=== PATIENT | male | born 1990 | race Caucasian/White ===

== ENCOUNTER 2020-03-24 17:24 | Emergency (ER) | payer MEDICAID, SELFPAY ==
[2020-03-24 17:30] VITALS: BP 145/86; PULSE 71; RESP 16; TEMP 36.8; O2SAT 97
--- NOTE | 2020-03-24 17:45 | DI.CT_ITS ---
EXAM: CT ABDOMEN PELVIS W CLINICAL HISTORY: lower abdominal pain 2-3 mo, assoc bloody stool. TECHNIQUE: Imaging Protocol: Axial computed tomography images with coronal and sagittal reformatted images were created and reviewed CONTRAST MATERIAL: Intravenous: Omnipaque 350 Contrast volume:100 ml Oral: no COMPARISON: No exams were available for comparison FINDINGS: ABDOMEN: Lung Bases: Normal where visualized. Liver: Normal density. No measurable mass. Gallbladder and biliary tract: No radiodense calculus or dilation. Pancreas: Normal density, no abnormal calcifications or inflammatory process. Spleen: Normal. Kidneys: Normal size, contour and axis. No radiodense stones or obstructive uropathy. No masses seen. Adrenal glands: No masses seen. Abdominal Aorta: Abdominal portion non-dilated. PELVIS: Bladder: Symmetric distention, no gross wall thickening. Bowel: No obstruction or bowel wall thickening. Increased stool particularly distally. Peritoneal cavity: No ascites, collection or mesenteric inflammatory response. Bones: Within normal limits. Reproductive organs: Within normal limits. Lymph nodes: Unremarkable. Impression: Increased quantity of stool, otherwise negative. RADIATION DOSE DELIVERED: Total DLP DATA REPOSITORY: All CT scans at this facility are submitted to the National Radiology Data Registry (NRDR) Dose Index Registry (DIR) with the [employer] (A[employer]). RADIATION OPTIMIZATION: All CT scans at this facility use at least one of these dose optimization te chniques: automated exposure control; mA and/or kV adjustment per patient size (includes targeted exa ms where dose is matched to clinical indication); or iterative reconstruction.
--- NOTE | 2020-03-24 17:47 | ED.GENADUL_ITS ---
Discharge Plan Disposition Patient Disposition: HOME Condition: Stable Discharge Details Chief Complaint: Abd Prob Clinical Impression: Abdominal pain, Constipation, Bloody stools Primary Care Provider: Debbie,Local ED Provider: Jassi Roberts Home Meds and New Rx's Prescriptions: New docusate sodium [Dulcolax Stool Softener (dss)] 100 mg capsule 100 mg PO BID Qty: 60 RF: 0 mineral oil [Fleet Mineral Oil] Enema 118 ml MI DAILY 2 Days Qty: 270 RF: 0 Continued buprenorphine-naloxone [Suboxone] 8-2 mg Film 2 film SUBLINGUAL DAILY RF: 0 Discharge Instructions Instructions: Constipation (ED), Abdominal Pain (ED) Additional Instructions: Please use stool softener as prescribed. Please use mineral oil enema as prescribed. Drink plenty of clear electrolyte balanced fluid (ie. Gatorade) to stay hydrated. You magnesium was slightly low today. Be sure to discuss this with your doctor. Maintain a balanced diet. Please follow-up with general surgery. Call on Wednesday to schedule follow-up appointment for colonoscopy. Please contact your primary care physician to arrange follow-up. Return to the ER for any worsening or new concerning symptoms. If you have persistent heavy bleeding from your rectum, return to the emerge department immediately. Referrals: Geetha Jara MD [ [facility] STAFF PHYSICIAN] - Medical Decision Making 30-year-old male here with 3 to 4 months of intermittent lower abdominal pain, constipation, and occasional bright red blood mixed in the stool. Hemoccult positive with no gross blood. CT the abdomen and pelvis to assess for acute surgical pathology or mass was reviewed and interpreted by radiology: IMPRESSION: Significant amount of retained fecal material throughout the colon. No bowel obstruction. Labs reviewed and nondiagnostic other than mild hypomagnesemia. Magnesium 400 mg p.o. given. Suspect constipation. Patient given IV fluid bolus. Will prescribe fleets enema and stool softener. Patient was encouraged to follow-up with general surgery for further diagnostic testing including colonoscopy. Usual and customary discharge instructions were reviewed with the patient. Patient was encouraged to increase fluid intake. All results were discussed with the patient. Patient understands importance of timely outpatient follow- up. HPI General Mode of arrival: ambulatory . Date/Time Provider Initiated Documentation: 03/24/20 17:27 . Limitations to Documentation: no limitations . Information obtained by: patient . HPI Narrative: 30-year-old male presents with chief complaint of abdominal pain. Patient notes chronic intermittent abdominal pain over the past 3 months. Pain is described as a fullness. Moderate intensity. He notes associated constipation and also having to strain to have bowel movements. Sometimes bowel movements are bloody. He seen his primary care physician for this and was encouraged to go to the ER for further work-up a few months ago. This is his first time coming to the ER for this issue. He notes main concern of potential colon cancer as he has a family history of colon cancer. He is never had a colonoscopy. Patient is on Suboxone and does note that he is had decreased p.o. water intake recently. Last bowel movement was earlier today, small and it did have trace blood in it. Pain is currently mild. Related Data Home Medications Medication Instructions Recorded Confirmed buprenorphine-naloxone [Suboxone] 2 film SUBLINGUAL DAILY 03/24/20 03/24/20 docusate sodium [Dulcolax Stool 100 mg PO BID #60 cap 03/24/20 Softener (dss)] mineral oil [Fleet Mineral Oil] 118 ml MI DAILY 2 Days #270 ml 03/24/20 Previous Rx's Medication Instructions Recorded docusate sodium [Dulcolax Stool 100 mg PO BID #60 cap 03/24/20 Softener (dss)] mineral oil [Fleet Mineral Oil] 118 ml MI DAILY 2 Days #270 ml 03/24/20 Allergies Allergy/AdvReac Type Severity Reaction Status Date / Time a spray for sinus AdvReac Uncoded 03/24/20 17:34 infection General Stated Complaint: Abd Prob LEODAN: 3 Review of Systems All systems reviewed & are unremarkable except as noted in HPI and below Constitutional Constitutional: Denies fatigue, Denies fever(s) and Reports poor appetite Gastrointestinal Gastrointestinal: Reports as per HPI Genitourinary Genitourinary: Denies dysuria, Denies penile discharge, Denies scrotal swelling and Denies testicular pain Endocrine Endocrine: Denies fatigue Exam Const General: cooperative and no acute distress HENMT Mouth: moist mucous membranes Eyes Conjunctivae: normal conjunctivae Sclera: normal sclerae Neck Neck: trachea midline and supple Resp Auscultation: clear to auscultation bilaterally, no rales, no rhonchi and no wheezes Cardio Jugular venous pressure: no JVD Rate: regular rate and not tachycardic Rhythm: regular rhythm GI Palpation: soft, not firm, no guarding, no masses, not rigid and tender (Lower abdomen bilaterally) with no rebound tenderness Rectal Exam: visual inspection normal, normal sphincter tone, heme positive stool, No hemorrhoids, No mass, No tenderness and other (No gross blood) Skin General skin exam: no rashes or lesions noted Neuro General: patient alert, patient awake, patient oriented x3 and tone normal Extrem General: no edema Psych Appearance: grossly normal Mental Status: mental status grossly normal Speech and Movement: speech and movement normal Course Vital Signs Vital signs: Vital Signs Temperature 36.8 C 03/24/20 17:30 Pulse 71 03/24/20 17:30 Respiratory Rate 16 03/24/20 17:30 Blood Pressure 145/86 H 03/24/20 17:30 Pulse Oximetry 97 03/24/20 17:30 Temperature 36.8 C 03/24/20 17:30 Temperature Source Skin 03/24/20 17:30 Pulse 71 03/24/20 17:30 Respiratory Rate 16 03/24/20 17:30 Respiratory Effort Non-Labored 03/24/20 17:35 Blood Pressure 145/86 H 03/24/20 17:30 Blood Pressure Position Sitting 03/24/20 17:30 Pulse Oximetry 97 03/24/20 17:30 Oxygen Delivery Method Room Air 03/24/20 17:30 Oxygen Flow Rate 0 03/24/20 17:30 Pain Level 4 03/24/20 17:30
[2020-03-24] MEDS: Lactated Ringers 1,000 ML 1000 ML IV (17:57)
[2020-03-24 17:59] LABS: Abs Immature Grans 0.02 k/cumm (0.0-0.09); Absolute Basophil Count 0.03 k/cumm (0.0-0.2); Absolute Eosinophil Count 0.22 k/cumm (0.0-0.7); Absolute Lymphocyte Count 2.71 k/cumm (1.2-3.4); Absolute Monocyte Count 0.66 k/cumm (0.11-0.7); Absolute Neutrophil Count 6.13 k/cumm (1.2-6.7); Basophils % 0.3; Eosinophils % 2.3; HCT 41.6 % (40.0-50.0); HGB 14.5 g/dL (13.5-17.5); Immature Grans % 0.2 %; Lymphocytes % 27.7; Mean Corp. HGB Concentration 34.9 g/dL (32.0-36.0); Mean Corpuscular Hemoglobin 30.4 pg (27.0-33.0); Mean Corpuscular Volume 87.2 fL (80-95); Monocytes % 6.8; Neutrophils % 62.7; Platelet Count 326 x1000/uL (130-400); RBC 4.77 m/cumm (4.50-6.00); RBC Distribution Width 12.7 % (11.8-14.1); White Blood Cell Count 9.77 k/cumm (4.4-10.8)
[2020-03-24 18:19] LABS: ALT 32 U/L (16-63); AST 30 U/L (15-37); Albumin 4.2 g/dL (3.4-5.0); Alkaline Phosphatase 85 U/L (46-116); Anion Gap 9.4 mmol/L (3-11); BUN 18 mg/dL (7-18); Bilirubin, Total 0.5 mg/dL (0.2-1.0); CO2 28.6 mmol/L (21.0-32.0); CREATININE 1.03 mg/dL (0.70-1.30); Calcium 8.9 mg/dL (8.5-10.1); Chloride 101 mmol/L (98-107); Glucose 96 mg/dL (74-106); Lipase 151 U/L (73-393); Magnesium 1.7 mg/dL (1.8-2.4); Potassium 3.9 mmol/L (3.5-5.1); Sodium 139 mmol/L (136-145); Total Protein 7.3 g/dL (6.4-8.2)
[2020-03-24] MEDS: Omnipaque 350 MG/ML 100 ML BTL IJ (18:19)
[2020-03-24] MEDS: Normal Saline - Diluent 50 ML VIAL IV (18:20)
[2020-03-24] MEDS: Normal Saline Flush 10 ML SYR IVP (18:20)
[2020-03-24 18:30] LABS: ALT 32 U/L (16-63); AST 30 U/L (15-37); Albumin 4.2 g/dL (3.4-5.0); Alkaline Phosphatase 84 U/L (46-116); Bilirubin, Direct 0.12 mg/dL (0.00-0.20); Bilirubin, Total 0.5 mg/dL (0.2-1.0); Total Protein 7.3 g/dL (6.4-8.2)
--- NOTE | 2020-03-24 18:32 | DI.VRAD_ITS ---
PROCEDURE INFORMATION: Exam: CT Abdomen And Pelvis With Contrast Exam date and time: 03/24/2020 6:18 PM Age: 30 years old Clinical indication: Other: Lower abdominal pain 2-3 mo, assoc bloody stool TECHNIQUE: Imaging protocol: Computed tomography of the abdomen and pelvis with intravenous contrast. Radiation optimization: All CT scans at this facility use at least one of these dose optimization techniques: automated exposure control; mA and/or kV adjustment per patient size (includes targeted exams where dose is matched to clinical indication); or iterative reconstruction. Contrast material: OMNIPAQUE 350; Contrast volume: 100 ml; Contrast route: INTRAVENOUS (IV); COMPARISON: No relevant prior studies available. FINDINGS: Liver: Normal. No mass. Gallbladder and bile ducts: Normal. No calcified stones. No ductal dilation. Pancreas: Normal. No ductal dilation. Spleen: Normal. No splenomegaly. Adrenals: Normal. No mass. Kidneys and ureters: Normal. No hydronephrosis. Stomach and bowel: Significant amount of retained fecal material throughout the colon. No bowel obstruction. Appendix: A normal appendix is identified. Intraperitoneal space: Unremarkable. No free air. No significant fluid collection. Vasculature: Unremarkable. No abdominal aortic aneurysm. Lymph nodes: Unremarkable. No enlarged lymph nodes. Bladder: Unremarkable as visualized. Reproductive: Unremarkable as visualized. Bones/joints: Unremarkable. No acute fracture. Soft tissues: Unremarkable. IMPRESSION: Significant amount of retained fecal material throughout the colon. No bowel obstruction. Dictated and Authenticated by: Juan Diaz MD. Ordering:ALBINO Keene MD
[2020-03-24] MEDS: Magnesium Oxide 400 MG TAB PO (19:27)
[2020-03-24 19:28] VITALS: BP 134/94; PULSE 50; RESP 12; TEMP 36.6; O2SAT 98
--- NOTE | 2020-03-25 06:04 | NUR.NOTE ---
REFERRAL FAXED TO GENERAL SURGERY FOR FOLLOW UP CARE REQUESTED BY DR. MOORE Nursing Note:
--- NOTE | 2020-03-25 12:00 | CMPROGNOTE_ITS ---
- If Service Date Differs Date of service: 03/25/20 Time of Service: 12:00 Care Management Progress Note Maged is seen in the ED for abdominal pain and bloody stools. ED has already faxed a referral to general surgery. At ED provider's request, CM coordinates a referral to Simin Alcocer NP, [facility], of [facility], to assist patient in establishing care with a primary care provider.
== END 2020-03-24 19:20 | disposition home or self-care (01) ==
PROVIDERS: Emergency Provider Student in an Organized Health Care Education/Training Program
DX: R19.5 Other fecal abnormalities (principal); R10.30 Lower abdominal pain, unspecified; K59.00 Constipation, unspecified; E83.42 Hypomagnesemia; Z80.0 Family history of malignant neoplasm of digestive organs; F11.20 Opioid dependence, uncomplicated
CPT/HCPCS: 36415; 80053; 80076; 83690; 96360; 99285; 74177; 83735; 85025; 99284; J3490